=== PATIENT | female | born 1955 | race Caucasian/White ===

== ENCOUNTER 2024-03-15 10:55 | Emergency (ER) | payer OTHER, SELFPAY ==
--- OUTSIDE RECORDS SUMMARY | 2024-03-15 11:06 | XMS_ITS | Clinical Summary ---
Author Organization [facility] Address [address] [place] [address] Phone Care Team Providers Care Inverted Block Operator Name Role Phone Ezra Johnson MD Primary Care Provider [phone] Allergies Active Allergy Reactions Criticality Noted Date Comments Adhesive Rash Medium 01/04/2022 rash House Dust Cough,Sneezing Low 01/04/2022 Mold Cough,Sneezing Low 01/04/2022 Shellfish Edema High 08/31/2022 Shrimp Hives Medium 01/04/2022 Wool Rash Medium 01/04/2022 Medications loratadine-pseud oephedrine (CLARITIN-D 24-hour) 10-240 mg per 24 hr tablet Take 1 tablet by mouth daily Active azelastine (ASTELIN) 137 mcg (0.1 %) nasal spray Administer 1 spray into each nostril 2 (two) times a day Use in each nostril as directed 180 mL 3 07/06/19 23 Active albuterol 2.5 mg /3 mL (0.083 %) nebulizer solution Take 3 mL (2.5 mg total) by nebulization 4 (four) times a day as needed for wheezing or shortness of breath 180 mL 1 07/06/19 23 Active gabapentin (NEURONTIN) 300 mg capsuleIndicatio ns:Neuropathy (CMS/HCC) Take 1 capsule (300 mg total) by mouth 3 (three) times a day 270 capsule 3 01/10/20 23 Active meloxicam (MOBIC) 15 mg tablet Take 1 tablet (15 mg total) by mouth daily 100 tablet 1 10/02/19 24 Active omeprazole (PriLOSEC) 20 mg capsuleIndicatio ns:Gastroesophag eal reflux disease without esophagitis Take 1 capsule (20 mg total) by mouth daily 90 capsule 3 12/24/19 24 025 Active atorvastatin (LIPITOR) 20 mg tabletIndication s:Dyslipidemia Take 1 tablet (20 mg total) by mouth daily 90 tablet 3 12/24/19 24 025 Active fluticasone furoate-vilanter oL (BREO ELLIPTA) 100-25 mcg/dose diskus inhalerIndicatio ns:Moderate persistent asthma without complication Inhale 1 puff daily Rinse mouth with water after use. Do not swallow. 90 each 3 12/27/19 24 025 Active albuterol HFA (PROVENTIL HFA,VENTOLIN HFA,PROAIR HFA) 90 mcg/actuation inhalerIndicatio ns:Moderate persistent asthma without complication Inhale 2 puffs every 6 (six) hours as needed for wheezing 1 each 3 03/10/19 25 Active albuterol HFA (PROVENTIL HFA,VENTOLIN HFA,PROAIR HFA) 90 mcg/actuation inhalerIndicatio ns:Moderate persistent asthma without complication Inhale 2 puffs every 6 (six) hours as needed for wheezing 1 each 3 12/07/19 24 025 Discontin ued(Reord er) Active Problems Problem Noted Date Diagnosed Date Personal history of colonic polyps 01/11/2023 Encounter for screening colonoscopy 01/11/2023 Neuropathy 01/09/2023 Sudden right hearing loss 10/06/2022 Assessment & Plan (10/06/2022 11:13 AM CDT): Hearing test for sudden hearing loss Dizziness and giddiness 10/06/2022 Assessment & Plan (10/06/2022 11:17 AM CDT): Flonase 1 sprays into each nostril while looking down over the sink, do not sniff in or blow nose after use for at least 30 minutes and Astelin (azelastine) 1 sprays into each nostril while looking down over the sink, do not sniff in or blow nose after use for at least 30 minutes twice daily Switch to Cetirizine 10 mg daily Call if no continued improvement in dizziness in the next one month Hearing test for Right Sudden hearing loss Dependent edema 07/05/2022 Assessment & Plan (07/05/2022 4:51 PM CDT): Stable, generally well controlled, occurs in walking or standing for long distances, stabbing sensation Would recommend elevation as tolerated, use of compression stockings; if no improvement, can refer to podiatry Acute pain of right shoulder 07/05/2022 Assessment & Plan (07/05/2022 4:51 PM CDT): No known trauma; mostly in lateral sides; also noted AC joint physical exam, 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 Will get x-ray; based upon results to determine if patient would benefit from physical therapy versus orthopedics for possible injections Class 2 severe obesity due t o excess calories with serious comorbidity and body mass index (BMI) of 39.0 to 39.9 in adult 02/01/2022 Assessment & Plan (09/14/2023 8:22 AM CDT): Weight stable; 2 pound increase since last visit Continue working on healthy dietary choices; increasing fruit and veggies in diet Encouraged 30 minutes of moderate exercise 5 days/week Assessment & Plan (07/05/2022 4:50 PM CDT): Weight is increased since March, working on dietary changes, eats chairs in the mornings, salad for lunch, Cheerios before going to bed Discussed continue to work on dietary changes, including 4-6 servings of vegetables daily Encourage 30 minutes moderate intensity exercise 5 days per week Non-seasonal allergic rhinitis due to pollen Assessment & Plan (10/06/2022 11:12 AM CDT): Flonase 1 sprays into each nostril while looking down over the sink, do not sniff in or blow nose after use for at least 30 minutes and Astelin (azelastine) 1 sprays into each nostril while looking down over the sink, do not sniff in or blow nose after use for at least 30 minutes twice daily Switch to Cetirizine 10 mg daily Assessment & Plan (01/17/2022 3:12 PM PARTY COORDINATOR): Patient have symptoms of congestion for the past several weeks, excessive mucus while on CPAP Patient reports no fevers chills or sick contacts Symptoms most consistent with allergic rhinitis Start Astelin nasal spray 1 spray each nostril b.i.d., continue Claritin D 1 tablet daily Dyslipidemia 01/17/2022 Assessment & Plan (07/05/2022 4:49 PM CDT): Elevated total and LDL cholesterol; ASCVD risk score is 8%, intermediate risk Encourage low-fat high-fiber diet Continue atorvastatin 20 mg daily If no improvement, would consider increasing atorvastatin Assessment & Plan (01/17/2022 3:13 PM PARTY COORDINATOR): Patient reports elevated cholesterol levels, medication started by Cardiology, and abnormal stress test Patient needs to complete cardiac catheterization Check lipid panel today, continue atorvastatin 20 mg daily Moderate persistent asthma without complication 01/17/2022 Assessment & Plan (09/14/2023 8:07 AM CDT): Chronic, stable, generally well controlled Continue Breo Ellipta daily, Claritin-D daily, and albuterol as needed Assessment & Plan (07/05/2022 4:52 PM CDT): Generally well controlled, uses albuterol 1-2 times per week; uses daily controller Continue Breo Ellipta 1 puff daily, albuterol p.r.n. Assessment & Plan (01/17/2022 3:13 PM PARTY COORDINATOR): Stable, well controlled; continue Breo Ellipta 1 puff daily, albuterol p.r.n. Gastroesophageal reflux disease without esophagi tis 01/17/2022 Assessment & Plan (09/14/2023 8:07 AM CDT): Chronic, stable, well controlled Continue Omeprazole 20 mg daily Assessment & Plan (07/05/2022 4:52 PM CDT): Stable, well controlled; no major issues Continue omeprazole 20 mg daily Assessment & Plan (01/17/2022 3:13 PM PARTY COORDINATOR): Stable,well controlled Continue Prilosec 20 mg daily TERRI on CPAP 01/17/2022 Assessment & Plan (07/05/2022 4:52 PM CDT): Stable, well controlled; uses CPAP every night Assessment & Plan (01/17/2022 3:14 PM PARTY COORDINATOR): Controlled on CPAP, though reports increased mucus while using CPAP Refer to Sleep Medicine for further evaluation and management options Encounters Date Type Department Care Team Description 02/20/2024 8:30 AM PARTY COORDINATOR Office Visit [facility] Sleep Medicine at [address] [place] [address] Soo Hatch MD Obstructive sleep apnea (Primary Dx); Morbid (severe) obesity due to excess calories (HCC) 02/20/2024 Telephone [facility] [address] [place] [address] Ezra Johnson MD Medical Question/Miscellaneou s from Last 3 Months Immunizations Name Administration Dates Next Due Influenza, Trivalent, IM (MDV) 11/26/2018,2017,11/07/2016 Influenza, Unspecified 12/07/2022(Deferr ed: Patient Refused),07/05/2022(Deferred: Patient Refused),11/05/2021(Deferred: Patient Refused) Td, adsorbed 02/17/1999 Tdap 01/09/2023 ZOSTER LIVE 11/07/2016 Surgical History Surgery Date Site/Laterality Comments CHOLECYSTECTOMY 02/05/1994 - 02/04/1995 N/A TOTAL HIP ARTHROPLASTY 02/05/2013 - 02/04/2014 Right REPLACEMENT TOTAL KNEE 02/05/2019 - 02/05/2020 Left Medical History Medical History Date Comments Asthma Sleep difficulties Vertigo Family History Medical History Relation Name Comments Heart failure Son Relation Name Status Comments Father Mother Son Social History Tobacco Use Types Packs/Day Years Used Date Smoking Tobacco: Never Tobacco Cessation:Counseling Given: Not Answered AUDIT-C Answer Date Recorded Q1: How often do you have a drink containing alc ohol? Never 07/05/2022 Average Number of Drinks Not on file 023 Frequency of Binge Drinking Not on file 06/07 PHQ-2 Answer Date Recorded PHQ-2 Total Score (If total score is 3 or more points, staff should administer the PHQ-9) 0 09/14/2023 Personal Safety Answer Date Recorded Have you ever been in or are you currently in a harmful physical or emotional relationship or is someone making you feel afraid or unsafe? Denies 02/22/2023 Comments Unknown Sex and Gender Information Value Date Recorded Sex Assigned at Not on file Legal Sex Female 2:42 PM CDT Gender Identity Not on file Sexual Orientation Not on file Obstetrics History Para Term AB IAB SAB Ectopic Multiple Livin g Live Births 0 0 0 Last Filed Vital Signs Vital Sign Reading Time Taken Comments Blood Pressure 161/93 02/20/2024 8:15 AM PARTY COORDINATOR Pulse 89 02/20/2024 8:15 AM PARTY COORDINATOR Temperature 36.4 C (97.6 F) 09/14/2023 7:39 AM CDT Respiratory Rate 16 09/14/2023 7:39 AM CDT Oxygen Saturation 94% 02/20/2024 8:15 AM PARTY COORDINATOR Inhaled Oxygen Concentration - - Weight 114.3 kg (252 lb) 02/20/2024 8:15 AM PARTY COORDINATOR Height 177.8 cm (5' 10 ) 02/20/2024 8:15 AM PARTY COORDINATOR Body Mass Index 36.16 02/20/2024 8:15 AM PARTY COORDINATOR Plan of Treatment Health Maintenance Due Date Last Done Comments Hepatitis C Screening 1955 Osteoporosis Screening-Bone Density Scan 1955 Zoster Vaccine (2 of 3) 01/02/2017 11/07/2016 Influenza Vaccine (#1) 2023 9, 11/12/2017, 11/07/2016 Breast Cancer Screening-Mammogram 06/20/2024 08/24/2022 Postponed from 08/25/2023 (Patient declined, but will receive in the future) Colon Cancer Screening-Colonoscopy 09/12/2024 06/12/2018 Postponed from 06/12/2021 (Patient declined, but will receive in the future) Depression Screening 09/13/2024 09/14/2023, 01/09/2023, 09/11/2022, Additional history exists Fall Risk Assessment 09/13/2024 09/14/2023, 09/11/2022, 01/04/2022 Pneumococcal vaccine 65+ (1 of 2 - PCV) 09/13/2024 Postponed from 1961 (Patient declined, but will receive in the future) Well Visit 65+ 09/13/2024 09/14/2023, 09/11/2022 DTaP/Tdap/Td Vaccine (2 - Td or Tdap) 01/09/2033 01/09/2023, 02/17/1999 Hepatitis B Screening Completed 09/04/2023 Procedures Procedure Name Priority Date/Time Associated Diagnosis Comments SCREENING MAMMOGRAM BILATERAL W JOSE ELIAS Schedule Routine, Read Routine (OP Routine) 08/24/2022 10:09 AM CDT Encounter for screening mammogram for malignant neoplasm of breast HM COLONOSCOPY Routine 06/12/2018 from Last 3 Months or Most Recently Relevant to Health Maintenance Results * Screening Mammogram Bilateral W Jose Elias (08/24/2022 10:09 AM CDT) Anatomical Region Laterality Modality Breast Bilateral Mammography 09/08/2022 8:23 AM CDT Impressions 09/08/2022 8:23 AM CDT There is no mammographic evidence of malignancy. A 1 year screening mammogram is recommended. BI-RADS: 2 - Benign. The patient has been or will be contacted. The patient will be entered into a reminder system with a target due date of 1 year for her next mammogram. Electronically signed by: Minh Cochran M.D. Narrative 09/08/2022 8:23 AM CDT EXAMINATION: SCREENING MAMMOGRAM BILATERAL W JOSE ELIAS ORDERING HEALTHCARE PROVIDER: EZRA JOHNSON HISTORY: Routine screening mammography. COMPARISON: None available TECHNIQUE: CC and MLO views of the bilateral breasts were obtained with digital technique using breast tomosynthesis with C view. Computer aided detection was utilized. FINDINGS: DENSITY: The tissue of the bilateral breasts is almost entirely fatty. BREASTS: There are multiple oil cysts in the left breast, as well as regional course and punctate calcifications in the central and medial left breast and medial right breast. A biopsy marking clip is present in the left breast. There are no suspicious masses, suspicious calcifications, or other suspicious findings in either breast. There has been no suspicious interval change. Ezra Johnson MD IMG MAMMO PROCEDURES Belia l Result * HM COLONOSCOPY (06/12/2018) Historical Provider HEALTH MAINTENANCE Final Result from Last 3 Months or Most Recently Relevant to Health Maintenance Insurance [facility] [place] [address] [facility] [place] [address] Care Teams Inverted Block Operator Relationship Specialty Start Date End Date [place] [address] PCP - General Family Medicine 07/28/21
--- OUTSIDE RECORDS SUMMARY | 2024-03-15 11:06 | XMS_ITS | Referral Summary ---
Author Organization [facility] Address [address] [place] [address] Phone Care Team Providers Care Can Capper Name Role Phone Ezra Johnson MD Primary Care Provider [phone] Encounters Date Type Department Care Team Description 02/20/2024 Telephone [facility] [address] [address] Ezra Johnson MD Medical Question/Miscellaneou s 02/20/2024 8:30 AM DRUG ROOM CLERK Office Visit [facility] Sleep Medicine at [address] [place] [address] Soo Hatch MD Obstructive sleep apnea (Primary Dx); Morbid (severe) obesity due to excess calories (HCC) from Last 3 Months Allergies Active Allergy Reactions Criticality Noted Date [...] nostril as directed 180 mL 3 07/06/19 Active albuterol 2.5 mg /3 mL (0.083 [...] daily Assessment & Plan (01/17/2022 3:12 PM DRUG ROOM CLERK): Patient have symptoms of congestion for the [...] atorvastatin Assessment & Plan (01/17/2022 3:13 PM DRUG ROOM CLERK): Patient reports elevated cholesterol levels, medication started [...] p.r.n. Assessment & Plan (01/17/2022 3:13 PM DRUG ROOM CLERK): Stable, well controlled; continue Breo Ellipta 1 puff daily, albuterol p.r.n. Gastroesophageal reflux disease without esophagi tis 01/17/2022 Assessment & Plan (09/14/2023 8:07 AM CDT): Chronic, stable, well controlled Continue Omeprazole 20 mg daily Assessment & Plan (07/05/2022 4:52 PM CDT): Stable, well controlled; no major issues Continue omeprazole 20 mg daily Assessment & Plan (01/17/2022 3:13 PM DRUG ROOM CLERK): Stable,well controlled Continue Prilosec 20 mg daily TERRI on CPAP 01/17/2022 Assessment & Plan (07/05/2022 4:52 PM CDT): Stable, well controlled; uses CPAP every night Assessment & Plan (01/17/2022 3:14 PM DRUG ROOM CLERK): Controlled on CPAP, though reports increased mucus while using CPAP Refer to Sleep Medicine for further evaluation and management options Immunizations Name Administration Dates Next Due Influenza, Trivalent, IM (MDV) 11/26/2018,2017,11/07/2016 Influenza, Unspecified 12/07/2022(Deferr ed: Patient Refused),07/05/2022(Deferred: Patient Refused),11/05/2021(Deferred: Patient Refused) Td, adsorbed 02/17/1999 Tdap 01/09/2023 ZOSTER LIVE 11/07/2016 Social History Tobacco Use Types Packs/Day Years [...] on file Sexual Orientation Not on file Last Filed Vital Signs Vital Sign Reading Time Taken Comments Blood Pressure 161/93 02/20/2024 8:15 AM DRUG ROOM CLERK Pulse 89 02/20/2024 8:15 AM DRUG ROOM CLERK Temperature 36.4 C (97.6 F) 09/14/2023 7:39 AM CDT Respiratory Rate 16 09/14/2023 7:39 AM CDT Oxygen Saturation 94% 02/20/2024 8:15 AM DRUG ROOM CLERK Inhaled Oxygen Concentration - - Weight 114.3 kg (252 lb) 02/20/2024 8:15 AM DRUG ROOM CLERK Height 177.8 cm (5' 10 ) 02/20/2024 8:15 AM DRUG ROOM CLERK Body Mass Index 36.16 02/20/2024 8:15 AM DRUG ROOM CLERK Plan of Treatment Not on file Procedures Procedure Name Priority Date/Time Associated Diagnosis Comments SCREENING MAMMOGRAM BILATERAL W JOSE ELIAS Schedule Routine, Read Routine (OP Routine) 08/24/2022 10:09 AM CDT Encounter for screening mammogram for malignant neoplasm of breast COLONOSCOPY Routine 06/12/2018 from Last 3 Months [...] Most Recently Relevant to Health Maintenance Insurance [facility] [place] [address] [facility] Member Subscriber Plan / Payer (Ef fective 2021-Present) Name:Adela Coelho Relation to Subscriber:Self Name:Adela Coelho Payer ID:[id number] (NAIC) Type:MEDICARE RISK OTHER Address: [address] [facility] [place] [address] Care Teams Can Capper Relationship Specialty Start Date End Date Ezra Johnson MD [address] [place] [address] PCP - General Family Medicine 07/28/21
[2024-03-15 11:18] VITALS: BP 144/71; PULSE 127; RESP 20; TEMP 37.2; O2SAT 97
[2024-03-15 11:41] LABS: EDCOVIDSCREEN Negative (Negative); EDINFLUASCREEN Positive (Negative); EDINFLUBSCREEN Negative (Negative)
--- NOTE | 2024-03-15 12:30 | ED.GENADULT ---
HPI - General Adult General Chief complaint: Upper Respiratory Infection Stated complaint: cough Source: patient Mode of arrival: ambulatory Limitations: no limitations History of Present Illness HPI narrative: Patient presents for evaluation of sick symptoms for the last 3 days. Symptoms include sore throat cough. Denies any fever, chills, nausea vomiting, diarrhea or SOB. Several family members have been diagnosed with influenza a. She does not smoke. She tried taking mucinex. It seemed to make her cough worse. She has an underlying history of asthma. She does appreciate wheezing. Related Data Home Medications ?Medication ?Instructions ?Recorded ?Confirmed ?Last Taken ?Type albuterol sulfate 90 mcg/actuation inhalation 03/15/24 Unknown History aerosol inhaler atorvastatin 20 mg tablet mg 03/15/24 Unknown History fluticasone furoate 100 inhalation 03/15/24 Unknown History mcg-vilanterol 25 mcg/dose inhalation powder gabapentin 300 mg capsule mg 03/15/24 Unknown History meloxicam 15 mg tablet mg 03/15/24 Unknown History Allergies Allergy/AdvReac Type Severity Reaction Status Date / Time No Known Allergies Allergy Verified 03/15/24 11:21 Review of Systems Review of Systems: CONSTITUTIONAL: Denies fever, chills, or sweats. EYES: Denies visual changes, redness, or discharge. ENT: Reports sore throat. Denies rhinorrhea, congestion, or otalgia. CARDIOVASCULAR: Denies chest pain, palpitations, or edema. RESPIRATORY: Reports cough and wheezing. Denies shortness of breath GASTROINTESTINAL: Denies abdominal pain, nausea, vomiting, or diarrhea. GENITOURINARY: Denies dysuria or hematuria. SKIN: Denies rash or itching. MUSCULOSKELETAL: Denies back pain, joint pain, or myalgia. NEUROLOGIC: Denies headache, numbness, dizziness, or weakness. PSYCHIATRIC: Denies anxiety or depression. [facility] Past Medical History Medical History Hyperlipidemia Asthma exacerbation Surgical History Surgical History No pertinent past surgical history Family History Family History Mother Family history non-contributory Social History Social History Smoking status: Never smoker Substance use: never Living arrangements: with family Gender identity (if verbalized by the patient): Female Sexual Orientation (if Verbalized by the Patient): Straight or Heterosexual Spiritual care concerns: No Exam Narrative: GENERAL: Well-appearing, well-nourished, and in no acute distress. HEAD: Normocephalic, atraumatic. EYES: PERRLA and EOMI. ENT: Nares clear, no rhinorrhea or epistaxis. Mucous membranes moist. Oropharynx without tonsillar hypertrophy exudate or other lesions. Bilateral TMs pearly white nonbulging NECK: Supple. No adenopathy or masses. No carotid bruits or JVD CHEST: Mild wheezing noted bilaterally. Cough present on exam. I HEART:Rate 120. Regular rhythm. No murmur heard. Normal peripheral pulses. ABDOMEN: Soft, nontender, nondistended, normal active bowel sounds. EXTREMITIES: Normal range of motion. No edema. SKIN: Warm, dry, no rash. NEURO: No focal deficits. Alert and oriented x3. PSYCH: Normal mood and affect. Course Course Emergency Course: This is a 68-year-old female who presented for evaluation of sick symptoms. Influenza A positive. Her heart rate was mildly elevated but she denies any shortness of breath or palpitations. Recommend increased hydration. Will DC with Tamiflu and prednisone. She has tolerated steroids well in past. Increase hydration. [id number]-[id number] agents for symptom management. Follow up with primary provider. Go to the ER for worsening symptoms or if she develops shortness breath, palpitations or chest pain.. Patient in agreement with plan of care. Level of Care: Express Care Visit Vital Signs Vital signs: Vital Signs Temperature 37.2 C 03/15/24 11:18 Pulse Rate 127 H 03/15/24 11:18 Respiratory Rate 20 03/15/24 11:18 Blood Pressure 144/71 H 03/15/24 11:18 Pulse Oximetry 97 03/15/24 11:18 Oxygen Delivery Room Air 03/15/24 11:18 Temperature 37.2 C 03/15/24 11:18 Pulse Rate 127 H 03/15/24 11:18 Respiratory Rate 20 03/15/24 11:18 Blood Pressure 144/71 H 03/15/24 11:18 Pulse Oximetry 97 03/15/24 11:18 Oxygen Delivery Room Air 03/15/24 11:18 Medical Decision Making Vital Signs Vital Signs: Vital Signs Temperature 37.2 C 03/15/24 11:18 Pulse Rate 127 H 03/15/24 11:18 Respiratory Rate 20 03/15/24 11:18 Blood Pressure 144/71 H 03/15/24 11:18 Pulse Oximetry 97 03/15/24 11:18 Oxygen Delivery Room Air 03/15/24 11:18 Temperature 37.2 C 03/15/24 11:18 Pulse Rate 127 H 03/15/24 11:18 Respiratory Rate 20 03/15/24 11:18 Blood Pressure 144/71 H 03/15/24 11:18 Pulse Oximetry 97 03/15/24 11:18 Oxygen Delivery Room Air 03/15/24 11:18 Lab Data Labs: Lab Results 03/15/24 Range/Units 11:18 POC Influenza A Ag Positive (Negative) POC Influenza B Ag Negative (Negative) POC SARS CoV-2 Ag Negative (Negative) Discharge Plan Discharge Clinical Impression: Influenza A, History of asthma Patient Disposition: Home, Self-Care Condition: Stable Instructions: Antibiotic Form, Asthma (ED), Influenza (ED) Patient Language: Bahraini Prescriptions: New oseltamivir [Tamiflu] 75 mg capsule 75 mg PO Q12H 5 Days Qty: 10 0RF prednisone 50 mg tablet 50 mg PO DAILY Qty: 5 0RF No Action atorvastatin 20 mg tablet meloxicam 15 mg tablet gabapentin 300 mg capsule albuterol sulfate 90 mcg/actuation HFA aerosol inhaler INHALATION fluticasone furoate-vilanterol 100-25 mcg/dose blister with device INHALATION Follow-up/Referrals: Antoni,Immanuel Bui MD [Primary Care Provider] - Time of Disposition: 12:29
== END 2024-03-15 12:42 | disposition home or self-care (01) ==
PROVIDERS: Emergency Provider Nurse Practitioner; PCP Family Medicine
DX: J10.1 Influenza due to other identified influenza virus with other respiratory manifestations (principal); Z20.822 Contact with and (suspected) exposure to COVID-19; J45.909 Unspecified asthma, uncomplicated; E78.5 Hyperlipidemia, unspecified
CPT/HCPCS: 87426; 87804; 99203; G0463

== ENCOUNTER 2024-05-19 08:44 | Emergency (ER) | payer OTHER, SELFPAY ==
--- NOTE | ~2024-05-19 | XR_ITS ---
EXAMINATION: XR finger 1st RT min 2V DATE: 05/19/2024 09:24 INDICATION: Swelling and bruising at the right thumb post fall TECHNIQUE: Dorsal palmar, lateral and 2 oblique views of the right first digit were obtained COMPARISON: None FINDINGS: No traumatic malalignment. No fracture. There is widening of the scapholunate interval with proximal migration of the capitate and severe secondary osteoarthritis at the right wrist consistent with scap holunate ligament insufficiency and secondary scapholunate advanced collapse (SLAC) wrist. Additiona l polyarticular osteoarthritis, severe at the first and fourth carpometacarpal joints, at the first-t hird metacarpophalangeal and a few of the visualized interphalangeal joints including the first inter phalangeal joint and mild to moderate osteoarthritis at the remaining joints at the right hand. IMPRESSION: 1. No acute osseous abnormality. 2. 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 3. 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 Reviewed, dictated and finalized at location A. IMPRESSION: 1. No acute osseous abnormality. 2. 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 3. 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
--- NOTE | ~2024-05-19 | XR_ITS ---
HISTORY: pain after falling COMPARISON: None TECHNIQUE: 4 views of the left knee were performed FINDINGS: No acute or subacute fracture. A left total knee prosthetic is identified. Joint space narrowing and sclerosis is identified within the patellofemoral and tibiofibular joint sp breanna with loss of intervening planes Subcentimeter ossific bodies detected along the quadriceps tendon. No suprapatellar joint effusion is identified. The infrapatellar joint space is clear. IMPRESSION: Severe degenerative disease without discrete acute/subacute fracture on the submitted im ages. Reviewed, dictated and finalized at location A. IMPRESSION: Severe degenerative disease without discrete acute/subacute fractu re on the submitted images.
[2024-05-19 08:52] VITALS: BP 181/84; PULSE 100; RESP 16; TEMP 36.9; O2SAT 98
--- NOTE | 2024-05-19 08:53 | ED_ITS ---
HPI - General Adult General Chief complaint: Head Injury Stated complaint: Fall Injury/Head Time Seen by Provider: 05/19/24 08:53 Source: patient Mode of arrival: ambulatory Limitations: no limitations History of Present Illness HPI narrative: 68 yo F presents with pain to L knee and R thumb. Tripped over strap at gym today and twisted L knee and then fell on it. Hit forehead on floor. Has large hematoma to forehead. Denies LOC. Denies headache. does not take blood thinner. Ambulatory with steady gait. All systems reviewed and negative except as noted above. Related Data Home Medications ?Medication ?Instructions ?Recorded ?Confirmed ?Last Taken ?Type albuterol sulfate 90 mcg/actuation inhalation 03/15/24 Unknown History aerosol inhaler atorvastatin 20 mg tablet mg 03/15/24 Unknown History fluticasone furoate 100 inhalation 03/15/24 Unknown History mcg-vilanterol 25 mcg/dose inhalation powder gabapentin 300 mg capsule mg 03/15/24 Unknown History meloxicam 15 mg tablet mg 03/15/24 Unknown History omeprazole 20 mg capsule,delayed mg 05/19/24 Unknown History release Allergies Allergy/AdvReac Type Severity Reaction Status Date / Time No Known Allergies Allergy Verified 05/19/24 08:53 Review of Systems Review of Systems: CONSTITUTIONAL: Denies fever, chills, or sweats. EYES: Denies visual changes, redness, or discharge. ENT: Denies rhinorrhea, congestion, sore throat, or otalgia. CARDIOVASCULAR: Denies chest pain, palpitations, or edema. RESPIRATORY: Denies cough or dyspnea. GASTROINTESTINAL: Denies abdominal pain, nausea, vomiting, or diarrhea. GENITOURINARY: Denies dysuria or hematuria. SKIN: Denies rash or itching. MUSCULOSKELETAL: Reports left knee and right thumb pain. NEUROLOGIC: Denies headache, numbness, or weakness. PSYCHIATRIC: Denies anxiety or depression. All other systems reviewed are negative, except as documented in HPI. [facility]LY [facility] Past Medical History Medical History Hyperlipidemia Asthma exacerbation Surgical History Surgical History No pertinent past surgical history Family History Family History Mother Family history non-contributory Social History Social History Smoking status: Never smoker Substance use: never Living arrangements: with family Gender identity (if verbalized by the patient): Female Sexual Orientation (if Verbalized by the Patient): Straight or Heterosexual Spiritual care concerns: No Comments At time of signature, agree with nursing past medical, surgical, social and family history. There is no relevant family history pertinent to the presenting complaint. Exam Narrative: GENERAL: This is a well-nourished, well-developed patient, in no apparent distress. HEAD: normocephalic, Hematoma approximately 6 x 4 cm diameter to left side of forehead. EYES: PERRL. Sclera clear/white. Vision is grossly intact. Extraocular motions intact. EARS: External ears normal NOSE: External nose normal NECK: Neck supple, non-tender without lymphadenopathy, masses or thyromegaly. CARDIOVASCULAR: Regular rate and rhythm without murmurs, gallops, or rubs. RESPIRATORY: Clear to auscultation. Breath sounds equal bilaterally. No wheezes, rales, or rhonchi. SKIN: warm, Dry, intact with no suspicious lesions or rash, good texture and turgor. NEURO: awake, alert, and oriented to person, place and time. There were no obvious focal neurologic abnormalities. EXTREMITIES: Pain and swelling to right 1st metacarpal without deformity. Tender on palpation. Range of motion and distal neurovascularly intact. Medial and posterior tenderness to left knee with mild swelling. No deformity noted. Negative anterior posterior drawer testing. Course Course Level of Care: Express Care Visit Vital Signs Vital signs: Vital Signs Temperature 36.9 C 05/19/24 08:52 Pulse Rate 100 05/19/24 08:52 Respiratory Rate 16 05/19/24 08:52 Blood Pressure 181/84 H 05/19/24 08:52 Pulse Oximetry 98 05/19/24 08:52 Oxygen Delivery Room Air 05/19/24 08:52 Temperature 36.9 C 05/19/24 08:52 Pulse Rate 100 05/19/24 08:52 Respiratory Rate 16 05/19/24 08:52 Blood Pressure 130/70 05/19/24 10:00 Pulse Oximetry 98 05/19/24 08:52 Oxygen Delivery Room Air 05/19/24 08:52 Reviewed Medical Decision Making MDM Narrative Medical decision making narrative: x-ray left knee and right thumb negative for fracture. Patient has hematoma to left side of forehead. She is alert and oriented x3. Ambulatory steady gait. Denies headache, vision changes. No neuro deficits. Recommend follow-up with primary care physician at next available appointment. Please be advised this is a medical document. It is intended for [id number] communication. It is written in medical language and may contain unfamiliar abbreviations or verbiage. Medical documents are intended to carry relevant information, facts as evident, and the clinical opinion of the practitioner at the time of the encounter. This report may have been done utilizing a voice recognition system. Attempts have been made to correct errors. However, there may be uncorrected grammatical, spelling, and recognition errors present. The file time of this note does not necessarily represent the time of service. Vital Signs Vital Signs: Vital Signs Temperature 36.9 C 05/19/24 08:52 Pulse Rate 100 05/19/24 08:52 Respiratory Rate 16 05/19/24 08:52 Blood Pressure 181/84 H 05/19/24 08:52 Pulse Oximetry 98 05/19/24 08:52 Oxygen Delivery Room Air 05/19/24 08:52 Temperature 36.9 C 05/19/24 08:52 Pulse Rate 100 05/19/24 08:52 Respiratory Rate 16 05/19/24 08:52 Blood Pressure 130/70 05/19/24 10:00 Pulse Oximetry 98 05/19/24 08:52 Oxygen Delivery Room Air 05/19/24 08:52 reviewed, 132/80 at discharge Imaging Data My impression: Agree with radiologist Radiologist's impression: EXAMINATION: XR finger 1st RT min 2V DATE: 05/19/2024 09:24 INDICATION: Swelling and bruising at the right thumb post fall TECHNIQUE: Dorsal palmar, lateral and 2 oblique views of the right first digit were obtained COMPARISON: None FINDINGS: No traumatic malalignment. No fracture. 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 Additional polyarticular osteoarthritis, severe at the first and fourth carpometacarpal joints, at the first-third metacarpophalangeal and a few of the visualized interphalangeal joints including the first interphalangeal joint and mild to moderate osteoarthritis at the remaining joints at the right hand. IMPRESSION: 1. No acute osseous abnormality. 2. 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 3. 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 Discharge Plan Discharge Clinical Impression: Strain of right thumb Traumatic hematoma of forehead Qualifiers: Encounter type: initial encounter Qualified Code(s): S00.83XA - Contusion of other part of head, initial encounter Left knee sprain Qualifiers: Encounter type: initial encounter Involved ligament of knee: unspecified ligament Qualified Code(s): S83.92XA - Sprain of unspecified site of left knee, initial encounter Patient Disposition: Home Condition: Stable Instructions: Knee Sprain (ED), Head Injury (ED) Additional Instructions: The x-ray of your right thumb and left knee were negative for fractures. Apply ice as needed for pain. Take Tylenol every 6-8 hours as needed for pain. Follow-up with your primary care physician if pain is not improving. If you have severe headache, confusion, sleepiness, vomiting go to the ER. Patient Language: Citizen Of [place] Prescriptions: No Action atorvastatin 20 mg tablet meloxicam 15 mg tablet gabapentin 300 mg capsule albuterol sulfate 90 mcg/actuation HFA aerosol inhaler INHALATION fluticasone furoate-vilanterol 100-25 mcg/dose blister with device INHALATION oseltamivir [Tamiflu] 75 mg capsule 75 mg PO Q12H 5 Days Qty: 10 0RF prednisone 50 mg tablet 50 mg PO DAILY Qty: 5 0RF omeprazole 20 mg capsule,delayed release(DR/EC) Follow-up/Referrals: UNKNOWN,DOCTOR [Primary Care Provider] - Time of Disposition: 09:50
--- OUTSIDE RECORDS SUMMARY | 2024-05-19 09:02 | XMS_ITS | Clinical Summary ---
Author Organization [facility] Address [address] [place] [address] Phone Care Team Providers Care Import Coordinator Name Role Phone Magda Baeza NP Primary Care Provider Allergies Active Allergy Reactions Criticality Noted Date Comments Adhesive Rash Medium 01/04/2022 rash House Dust Cough,Sneezing Low 01/04/2022 Mold Cough,Sneezing Low 01/04/2022 Shellfish Edema High 08/31/2022 Shrimp Hives Medium 01/04/2022 Wool Rash Medium 01/04/2022 Medications loratadine-pseudoe phedrine (CLARITIN-D 24-hour) 10-240 mg per 24 hr [...] breath 180 mL 1 07/06/19 23 Active Additional Information Patient not taking.Reported on 05/02/2024 omeprazole (PriLOSEC) 20 mg capsuleIndications :Gastroesophageal reflux disease without esophagitis Take 1 capsule (20 mg total) by mouth daily 90 capsule 3 12/24/19 24 025 Active atorvastatin (LIPITOR) 20 mg tabletIndications: Dyslipidemia Take 1 tablet (20 mg total) by mouth daily 90 tablet 3 12/24/19 24 025 Active Additional Information Patient not taking.Reported on 05/02/2024 fluticasone furoate-vilanteroL (BREO ELLIPTA) 100-25 mcg/dose diskus inhalerIndications :Moderate persistent asthma without complication Inhale 1 puff daily Rinse mouth with water after use. Do not swallow. 90 each 3 12/27/19 24 025 Active albuterol HFA (PROVENTIL HFA,VENTOLIN HFA,PROAIR HFA) 90 mcg/actuation inhalerIndications :Moderate persistent asthma without complication Inhale 2 puffs every 6 (six) hours as needed for wheezing 1 each 3 03/10/19 25 Active meloxicam (MOBIC) 15 mg tabletIndications: Osteoarthritis, unspecified osteoarthritis type, unspecified site Take 1 tablet (15 mg total) by mouth daily 90 tablet 1 05/03/19 25 Active gabapentin (NEURONTIN) 300 mg capsuleIndications :Neuropathy Take 1 capsule (300 mg total) by mouth 3 (three) times a day 270 capsule 3 05/03/19 25 026 Active gabapentin (NEURONTIN) 300 mg capsuleIndications :Neuropathy Take 1 capsule (300 mg total) by mouth 3 (three) times a day 270 capsule 3 01/10/20 23 025 Discontin ued(Reord er) meloxicam (MOBIC) 15 mg tablet Take 1 tablet (15 mg total) by mouth daily 100 tablet 1 10/02/19 24 025 Discontin ued(Reord er) Active Problems Problem Noted Date Diagnosed Date Osteoarthritis 05/02/2024 Assessment & Plan (05/02/2024 3:38 PM CDT): -Chronic, controlled -Patient currently takes meloxicam 50 mg daily -Associated with osteoarthritis multiple joints -Patient endorses adequate relief with current medication regimen -Refill of medication provided -Continue current treatment plan Personal history of colonic polyps 01/11/2023 Neuropathy 01/09/2023 Assessment & Plan (05/02/2024 3:36 PM CDT): -chronic, controlled -currently takes gabapentin 300 mg t.i.d. -patient reports adequate relief with current regimen -reiterated importance of monitoring of skin where neuropathy affects them -refill of medication provided -continue current treatment plan Sudden right hearing loss 10/06/2022 Assessment & [...] versus orthopedics for possible injections Class 2 obesity with body ma ss index (BMI) of 35.0 to 35.9 in adult 02/01/2022 Assessment & Plan (05/02/2024 8:52 AM CDT): Wt Readings from Last 3 Encounters: 05/02/24 113.8 kg (250 lb 12.8 oz) 02/20/24 114.3 kg (252 lb) 09/14/23 116.4 kg (256 lb 9.6 oz) Body mass index is 35.99 kg/m . -Stable, not at goal of <30 bmi -Discussed recommendations for exercise at least 30 minutes moderate to vigorous exercise as tolerated most days of the week. (minimum 150 minutes weekly) -Discussed importance of well-balanced diet Assessment & Plan (09/14/2023 8:22 AM CDT): [...] rhinitis due to pollen Assessment & Plan (05/02/2024 3:32 PM CDT): -chronic, controlled -currently uses OTC Zyrtec, Flonase -reports worsening of allergies during environmental and weather changes -continue current treatment plan Assessment & Plan (10/06/2022 11:12 AM CDT): [...] daily Assessment & Plan (01/17/2022 3:12 PM RN UROLOGY): Patient have symptoms of congestion for the past several weeks, excessive mucus while on CPAP Patient reports no fevers chills or sick contacts Symptoms most consistent with allergic rhinitis Start Astelin nasal spray 1 spray each nostril b.i.d., continue Claritin D 1 tablet daily Dyslipidemia 01/17/2022 Assessment & Plan (05/02/2024 3:31 PM CDT): -chronic, suboptimally controlled -currently prescribed atorvastatin 20 mg daily, but has not been taking this -Discussed importance of well-balanced diet -will recheck lab values at future visit and further discuss treatment options -continue current treatment plan Assessment & Plan (07/05/2022 4:49 PM CDT): Elevated total and LDL cholesterol; ASCVD risk score is 8%, intermediate risk Encourage low-fat high-fiber diet Continue atorvastatin 20 mg daily If no improvement, would consider increasing atorvastatin Assessment & Plan (01/17/2022 3:13 PM RN UROLOGY): Patient reports elevated cholesterol levels, medication started by Cardiology, and abnormal stress test Patient needs to complete cardiac catheterization Check lipid panel today, continue atorvastatin 20 mg daily Moderate persistent asthma without complication 01/17/2022 Assessment & Plan (05/02/2024 3:36 PM CDT): -chronic, controlled -patient currently prescribed albuterol rescue inhaler, Breo Ellipta maintenance inhaler -patient reports their asthma is fairly well-controlled on current regimen -patient denies needing to use rescue inhaler frequently -no wheezing noted on exam -continue current treatment plan Assessment & Plan (09/14/2023 8:07 AM CDT): Chronic, stable, generally well controlled Continue Breo Ellipta daily, Claritin-D daily, and albuterol as needed Assessment & Plan (07/05/2022 4:52 PM CDT): Generally well controlled, uses albuterol 1-2 times per week; uses daily controller Continue Breo Ellipta 1 puff daily, albuterol p.r.n. Assessment & Plan (01/17/2022 3:13 PM RN UROLOGY): Stable, well controlled; continue Breo Ellipta 1 puff daily, albuterol p.r.n. Gastroesophageal reflux disease without esophagi tis 01/17/2022 Assessment & Plan (05/02/2024 3:32 PM CDT): -chronic, controlled -patient currently takes omeprazole 20 mg daily -patient encouraged to continue avoiding trigger foods and remaining upright at least 30 minutes after eating or drinking -continue current treatment plan Assessment & Plan (09/14/2023 8:07 AM CDT): Chronic, stable, well controlled Continue Omeprazole 20 mg daily Assessment & Plan (07/05/2022 4:52 PM CDT): Stable, well controlled; no major issues Continue omeprazole 20 mg daily Assessment & Plan (01/17/2022 3:13 PM RN UROLOGY): Stable,well controlled Continue Prilosec 20 mg daily TERRI on CPAP 01/17/2022 Assessment & Plan (05/02/2024 3:37 PM CDT): -chronic, controlled -patient currently reports compliance with CPAP machine -denies any excessive fatigue or daytime sleepiness -continue current treatment plan Assessment & Plan (07/05/2022 4:52 PM CDT): Stable, well controlled; uses CPAP every night Assessment & Plan (01/17/2022 3:14 PM RN UROLOGY): Controlled on CPAP, though reports increased mucus while using CPAP Refer to Sleep Medicine for further evaluation and management options Resolved Problems Problem Noted Date Diagnosed Date Resolved Date Encounter for screening colonoscopy 01/11/2023 05/02/2024 Encounters Date Type Department Care Team Description 05/02/2024 8:30 AM CDT Office Visit [facility] Primary Care at [address] [place] [phone] Magda Baeza NP Establishing care with new doctor, encounter for (Primary Dx); Dyslipidemia; Non-seasonal allergic rhinitis due to pollen; Gastroesophageal reflux disease without esophagitis; Moderate persistent asthma without complication; TERRI on CPAP; Neuropathy; Osteoarthritis, unspecified osteoarthritis type, unspecified site; Class 2 obesity with body mass index (BMI) of 35.0 to 35.9 in adult, unspecified obesity type, unspecified whether serious comorbidity present 03/31/2024 Telephone [facility] [address] [place] [address] Brunilda Sands MA 03/17/2024 3:00 PM RN UROLOGY Telemedicine [facility] [address] [phone] Meenu Denney NP Influenza A (Primary Dx); Moderate persistent asthma with acute exacerbation 02/20/2024 8:30 AM RN UROLOGY Office Visit [facility] Sleep Medicine at [place] [address] [place] [address] Soo Hatch MD Obstructive sleep apnea (Primary Dx); Morbid (severe) obesity due to excess calories (HCC) 02/20/2024 Telephone [facility] [address] [address] Ezra Johnson MD Medical Question/Miscellaneous from Last 3 Months Immunizations Immunization Administration Dates Next Due Influenza, Trivalent, IM [...] Family History Medical History Relation Name Comments No Known Problems Brother COPD Father No Known Problems Sister Heart failure Son Relation Name Status Comments Brother Alive Father Mother Sister Alive Son Social History Tobacco Use Types Packs/Day Years Used Date Smoking Tobacco: Never Smokeless Tobacco: Never Tobacco Cessation:Counseling Given: Not Answered AUDIT-C Answer Date Recorded Q1: How often do you have a drink containing alcohol? Never 05/02/2024 Q2: How many drinks containi ng alcohol do you have on a typical day when you are drinking? Patient does not drink Q3: How often do you have si x or more drinks on one occasion? Never 05/02/2024 PHQ-2 Answer Date Recorded PHQ-2 Total Score (If total score is 3 or more points, staff should administer the PHQ-9) 0 05/02/2024 Personal Safety Answer Date Recorded Have you ever been in or are you currently in a harmful physical or emotional relationship or is someone making you feel afraid or unsafe? Denies 02/22/2023 Comments No Sex and Gender Information Value Date Recorded Sex Assigned at Not on file Legal Sex Female 2:42 PM CDT Gender Identity Not on file Sexual Orientation Not on file Obstetrics History Para Term AB IAB SAB Ectopic Multiple Livin g Live Births 0 0 0 Last Filed Vital Signs Vital Sign Reading Time Taken Comments Blood Pressure 130/82 05/02/2024 8:28 AM CDT Pulse 97 05/02/2024 8:28 AM CDT Temperature 36.4 C (97.5 F) 05/02/2024 8:28 AM CDT Respiratory Rate 16 05/02/2024 8:28 AM CDT Oxygen Saturation 95% 05/02/2024 8:28 AM CDT Inhaled Oxygen Concentration - - Weight 113.8 kg (250 lb 12.8 oz) 05/02/2024 8:28 AM CDT Height 177.8 cm (5' 10 ) 05/02/2024 8:28 AM CDT Body Mass Index 35.99 05/02/2024 8:28 AM CDT Plan of Treatment Health Maintenance Due Date Last Done Comments Hepatitis C Screening 1955 Osteoporosis Screening-Bone Density Scan 1955 Zoster Vaccine (2 of 3) 01/02/2017 11/07/2016 Breast Cancer Screening-Mammogram 06/20/2024 08/24/2022 Postponed from 08/25/2023 (Patient declined, but will receive in the future) Influenza Vaccine (#1) 2024 9, 11/12/2017, 11/07/2016 Postponed from 10/07/2023 (Patient declined, but will receive in the future) Colon Cancer Screening-Colonoscopy 09/12/2024 06/12/2018 Postponed from 06/12/2021 (Patient declined, but will receive in the future) Pneumococcal vaccine 65+ (1 of 2 - PCV) 09/13/2024 Postponed from 1973 (Patient declined, but will receive in the future) Well Visit 65+ 09/13/2024 09/14/2023, 09/11/2022 Depression Screening 05/02/2025 05/02/2024, 09/14/2023, 01/09/2023, Additional history exists Fall Risk Assessment 05/02/2025 05/02/2024, 09/14/2023, 09/11/2022, Additional history exists DTaP/Tdap/Td Vaccine (2 - Td or Tdap) [...] Most Recently Relevant to Health Maintenance Insurance [facility] [place] [address] [facility] Care Teams Import Coordinator Relationship Specialty Start Date End Date Magda Baeza NP [address] [place] [address] DR LEGGETT [address] [place] [id number] PCP - General Family Medicine 05/02/24
--- OUTSIDE RECORDS SUMMARY | 2024-05-19 09:02 | XMS_ITS | Referral Summary ---
Author Organization [facility] Address [address] [place] [address] Phone Care Team Providers Care Termite Inspector Name Role Phone Magda Baeza NP Primary Care Provider Encounters Date Type Department Care Team Description 05/02/2024 8:30 AM CDT Office Visit [facility] Primary Care at [place] [address] [place] [address] Magda Baeza NP Establishing care with [...] unspecified whether serious comorbidity present 03/31/2024 Telephone [facility] [address] [place] [phone] Brunilda Sands MA 03/17/2024 3:00 PM [facility] Telemedicine [facility] Care [address] [place] [address] Meenu Denney NP Influenza A (Primary Dx); Moderate persistent asthma with acute exacerbation 02/20/2024 Telephone [facility] [address] [address] Ezra Johnson MD Medical Question/Miscellaneous 02/20/2024 8:30 AM [facility] Office Visit [facility] Sleep Medicine at [address] [place] [address] Soo Hatch MD Obstructive sleep [...] mouth daily 90 tablet 3 12/24/19 24 Active Additional Information Patient not taking.Reported on [...] daily Assessment & Plan (01/17/2022 3:12 PM [facility]): Patient have symptoms of congestion for the [...] atorvastatin Assessment & Plan (01/17/2022 3:13 PM [facility]): Patient reports elevated cholesterol levels, medication started [...] p.r.n. Assessment & Plan (01/17/2022 3:13 PM [facility]): Stable, well controlled; continue Breo Ellipta 1 [...] daily Assessment & Plan (01/17/2022 3:13 PM [facility]): Stable,well controlled Continue Prilosec 20 mg daily TERRI on CPAP 01/17/2022 Assessment & Plan (05/02/2024 3:37 PM CDT): -chronic, controlled -patient currently reports compliance with CPAP machine -denies any excessive fatigue or daytime sleepiness -continue current treatment plan Assessment & Plan (07/05/2022 4:52 PM CDT): Stable, well controlled; uses CPAP every night Assessment & Plan (01/17/2022 3:14 PM [facility]): Controlled on CPAP, though reports increased mucus while using CPAP Refer to Sleep Medicine for further evaluation and management options Resolved Problems Problem Noted Date Diagnosed Date Resolved Date Encounter for screening colonoscopy 01/11/2023 05/02/2024 Immunizations Immunization Administration Dates Next Due Influenza, [...] 05/02/2024 8:28 AM CDT Plan of Treatment Not on file Procedures [...] Most Recently Relevant to Health Maintenance Insurance [facility] [place] [address] [facility] [place] [address] Care Teams Termite Inspector Relationship Specialty Start Date End Date Magda Baeza NP [address] [place] [address] [place] [address] PCP - General Family Medicine 05/02/24
--- OUTSIDE RECORDS SUMMARY | 2024-05-19 09:05 | XMS_ITS | Clinical Summary ---
Author Organization [facility] Address [address] [place] [address] Care Team Providers Care Assistant Elementary Teacher Name Role Phone Unavailable Primary Care Provider Unavailabl e Social History Tobacco Use Types Packs/Day Years Used Date Smoking Tobacco: Never Comments Unknown Sex and Gender Information Value Date Recorded Sex Assigned at Not on file Legal Sex Female 5:58 PM CDT Gender Identity Not on file Sexual Orientation Not on file Last Filed Vital Signs Vital Sign Reading Time Taken Comments Blood Pressure 118/80 02/16/2011 1:42 PM JOURNEYMAN WELDER Pulse 78 02/16/2011 1:42 PM JOURNEYMAN WELDER Temperature - - Respiratory Rate 20 02/16/2011 1:42 PM JOURNEYMAN WELDER Oxygen Saturation - - Inhaled Oxygen Concentration - - Weight 103 kg (227 lb) 02/16/2011 1:42 PM JOURNEYMAN WELDER Height 179.1 cm (5' 10.5 ) 02/16/2011 1:42 PM CS T Body Mass Index 32.11 02/16/2011 1:42 PM JOURNEYMAN WELDER Plan of Treatment Health Maintenance Due Date Last Done Comments Colorectal Cancer Screening Colonoscopy (10 Years) 1954 Hepatitis C 1972 DTaP, Tdap and Td Vaccines ( 1 - Tdap) 1973 Mammogram Screening 1994 Zoster Vaccines (1 of 2) 2004 Dexa Scan (General) 09/22/2019 Pneumococcal Vaccine: 50+ Ye ars (1 of 1 - PCV) 09/22/2019 COVID-19 Vaccine ( - 2023-2 5 season) 2023 RSV Immunization or 60+ Years (1 - 1-dose 75+ series) 2029 Meningococcal B Vaccine Aged Out No l onger eligible based on patient's age to complete this topic Meningococcal Vaccine Aged Out No diana rene eligible based on patient's age to complete this topic RSV Immunizations Under 20 Months Aged Out No longer eligible based on patient's age to complete this topic
[2024-05-19 10:00] VITALS: BP 130/70
== END 2024-05-19 10:00 | disposition home or self-care (01) ==
PROVIDERS: Emergency Provider Nurse Practitioner Family
DX: S69.81XA Other specified injuries of right wrist, hand and finger(s), initial encounter (principal); S00.83XA Contusion of other part of head, initial encounter; S83.92XA Sprain of unspecified site of left knee, initial encounter; W18.09XA Striking against other object with subsequent fall, initial encounter; Y92.39 Other specified sports and athletic area as the place of occurrence of the external cause; E78.5 Hyperlipidemia, unspecified; J45.909 Unspecified asthma, uncomplicated
CPT/HCPCS: 73140; 73564; 99214; G0463